=== PATIENT | male | born 1990 | race Two or more races ===

== ENCOUNTER 2016-03-21 22:49 | Emergency (ER) | payer BC ==
[2016-03-22] MEDS ORDERED: ACETAMINOPHEN ES 500 MG TABLET ONE (00:24)
[2016-03-22] MEDS ORDERED: ACETAMINOPHEN 325 MG TABLET PO ONE (00:30)
== END 2016-03-22 02:37 | disposition home or self-care (01) ==
LOC: ER 22:50
DX: K08.89 Other specified disorders of teeth and supporting structures (principal)

== ENCOUNTER 2017-06-02 16:21 | Emergency (ER) | payer BC ==
[~2017-06-02] VITALS: Ht 170.2 cm; Wt 72.6 kg
[2017-06-02 16:25] VITALS: BP 136/76
--- NOTE | 2017-06-02 19:37 | NUR ---
PT TO RADIOLOGY FOR XR
== END 2017-06-02 21:14 | disposition home or self-care (01) ==
LOC: ER 16:27
DX: S93.401A Sprain of unspecified ligament of right ankle, initial encounter (principal); H00.016 Hordeolum externum left eye, unspecified eyelid; W10.9XXA Fall (on) (from) unspecified stairs and steps, initial encounter; W11.XXXA Fall on and from ladder, initial encounter; Y93.89 Activity, other specified; Y92.89 Other specified places as the place of occurrence of the external cause; Y99.8 Other external cause status
CPT/HCPCS: 73610-TC; 73630-TC; A4606; Z7610